=== PATIENT | female | born 1975 | race Caucasian/White ===

== ENCOUNTER 2016-12-11 10:40 | Inpatient (IN) | payer BC ==
--- NOTE | ~2016-12-11 | EGD ---
EGD REPORT [facility] [address] [address] NAME: LEON PARKER : [birth year] STATUS : ADM Amie PAT#: [id number] AGE: 41 ADM/REG DATE : 12/11/16 MR#: [id number] REPORT SERV DATE: 12/12/16 DICTATED BY: GONZALES BRIONES DATE: 12/12/16 REPORT STATUS : Draft TRANSCRIBED BY: [facility] DATE: 12/12/16 [facility] Patient Name: Leon Parker Date of : 1975 Attending MD: GONZALES BRIONES MD Procedure Date No Time: 12/12/2016 Procedure: Colonoscopy Indications: Abdominal pain in the right lower quadrant, Clinically significant diarrhea of unexplained origin, Hematochezia Referring MD: MARY MEDRANO MD Medicines: as per anesthesia Complications: No immediate complications. Procedure: Pre-Anesthesia Assessment: - ASA Grade Assessment: III - A patient with severe systemic disease. After I obtained informed consent, the scope was passed under direct vision. Throughout the procedure, the patient's blood pressure, pulse, and oxygen saturations were monitored continuously. The [facility] [id number] was introduced through the anus and advanced to the cecum, identified by appendiceal orifice and ileocecal valve. The colonoscopy was performed without difficulty. The patient tolerated the procedure. The quality of the bowel preparation was adequate to identify polyps. Findings: The perianal and digital rectal examinations were normal. Two sessile polyps were found in the transverse colon. The polyps were 7 to 8 mm in size. These polyps were removed with a jumbo cold forceps. Resection and retrieval were complete. Internal hemorrhoids were found during endoscopy and were moderate. Four biopsies were obtained in the rectum and in the ascending colon with cold forceps for histology. Impression: - Two 7 to 8 mm polyps in the transverse colon. Resected and retrieved. - Internal hemorrhoids. - Four biopsies were obtained in the rectum and in the ascending colon. Recommendation: - Await pathology results. - Repeat colonoscopy for surveillance based on pathology results. Procedure Code(s): --- Professional --- EGD REPORT [facility] [address] [place]. [address] NAME: LEON PARKER : [birth year] STATUS : ADM Amie PAT#: [id number] AGE: 41 ADM/REG DATE : 12/11/16 MR#: [id number] REPORT SERV DATE: 12/12/16 DICTATED BY: GONZALES BRIONES. DATE: 12/12/16 REPORT STATUS : Draft TRANSCRIBED BY: [employer] DATE: 12/12/16 [id number], Colonoscopy, flexible, proximal to splenic flexure; with biopsy, single or multiple Diagnosis Code(s): --- Professional --- D12.3, Benign neoplasm of transverse colon K64.8, Other hemorrhoids R10.31, Right lower quadrant pain R19.7, Diarrhea, unspecified K92.1, Melena CPT copyright 2013 [employer]. All rights reserved. The codes documented in this report are preliminary and upon cook's assistant review may be revised to meet current compliance requirements. GONZALES BRIONES MD 12/12/2016 3:22 PM This report has been signed electronically. Number of Addenda: 0 Note Initiated On: 12/12/2016 2:21 PM Scope Withdrawal Time 0 hours 16 minutes 51 seconds [address] [place] [address]
--- NOTE | ~2016-12-11 | CN ---
Consultation Report [facility] [address] [place]. [address] NAME: LEON PARKER : [birth year] STATUS : ADM Amie PAT#: [id number] AGE: 41 ADM/REG DATE : 12/11/16 MR#: [id number] REPORT SERV DATE: 12/12/16 DICTATED BY: GONZALES BRIONES DATE: 12/11/16 REPORT STATUS : Draft TRANSCRIBED BY: TUTU DATE: 12/11/16 DATE OF CONSULTATION: 12/11/2016 HISTORY OF PRESENT ILLNESS: The is a 41-year-old, white female, admitted with a first episode of rectal bleeding, history of chronic diarrhea for some years. 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 Quigley for her arthritis, has sacroiliitis, ankylosing spondylitis, has been tried on Azulfidine, which she did not tolerate and has been on Humira with some response, some history of GERD, had hysterectomy last month, and is unremarkable thus far fibroids, also had her ovaries removed as well. She is also status post cholecystectomy. FAMILY HISTORY: Negative for IBD, negative for colon cancer. SOCIAL HISTORY: Positive nicotine. Positive for ETOH. Hemoglobin 13, white count 8. PHYSICAL EXAMINATION: GENERAL: Well-developed, well-nourished white female, alert and oriented x3. HEENT: Anicteric. CHEST: Clear. HEART: Regular rate and rhythm. No murmur or gallop. ABDOMEN: Soft. Mild tenderness in right lower quadrant. Bowel sounds present. EXTREMITIES: Grossly intact. ASSESSMENT: 1. Rectal bleeding. Chronic diarrhea, cramping, history of . 2. History of gastroesophageal reflux disease. SUGGESTION: 1. Agree with check stool studies. 2. We will schedule for colonoscopy. ADEN/TUTU Gonzales Briones M.D. / [id number] CC: Jewel Baker M.D.
--- NOTE | ~2016-12-11 | HP ---
History And Physical [facility] [address] [place]. [address] NAME: LEON PARKER : [birth year] STATUS : ADM Amie PAT#: [id number] AGE: 41 ADM/REG DATE : 12/11/16 MR#: [id number] REPORT SERV DATE: 12/12/16 DICTATED BY: DANO SINGH DATE: 12/11/16 REPORT STATUS : Draft TRANSCRIBED BY: MODL DATE: 12/11/16 DATE OF ADMISSION: 12/11/2016 HISTORY OF PRESENT ILLNESS: This is a pleasant 41-year-old white female who was at work today and had a large bloody bowel movement that was quite significant and was bright red in nature. She reports that she did not have any significant abdominal pain with this bowel movement, but from time to time, has some upper left quadrant and lower right quadrant abdominal pain. The patient states that she has had chronic diarrhea "as far back as she can remember or her entire life," she states that every time she eats anything within ten to fifteen minutes she is having loose stools or diarrhea. She has no known foods that precipitate this. She says "anything." She reports that back in March or April, she cannot remember exactly when, she had a CT scan of her abdomen and pelvis that showed some sacral ileitis. She was seen by her primary care and seen by manager administration who recommended GI referral this was delayed for some months as the patient underwent plans for a wedding which she is now and wanted to further pursue her chronic diarrhea problems. She was actually seen in the office by the nurse practitioner of Dr. Kirby Prieto and had been scheduled for an outpatient endoscopy procedure, but has since been directly admitted for this bloody stool and workup and Dr. Prieto is planning to do a colonoscopy in the a.m. on 12/12/2016. The patient states that her diarrhea is of course chronic and has been going on for most of her adult life, but did get worse after a cholecystectomy that she had done in the past. She reports some nausea, but no vomiting. She reports that she does not have any issues with eating and drinking. Swallowing is fine. She denies any fevers, denies any shortness of breath, denies any chest pain, denies any difficulty in carrying out activities of daily living, but also complains of a worsening fatigue over the past several weeks and months that seems to her to be getting worse. Then she states that she has had to take several naps after work which she was not accustomed to prior to this. PAST MEDICAL HISTORY: Includes a chronic diarrhea, questionable Crohn's, abnormal bleeding, anemia, GERD, insomnia, depression, chronic headaches, and questionable ankylosing spondylitis. SURGICAL HISTORY: Includes total hysterectomy that was performed in October of 2016 and prior cholecystectomy. FAMILY HISTORY: Mother with hypertension and chronic diarrhea and some unnamed psychiatric disorders. Father with hypertension. ALLERGIES: SHE DENIES ANY FOOD OR DRUG ALLERGIES. SOCIAL HISTORY: She works as a nurse at [employer]. Primary care is Dr. Mccord; GI, Dr. Prieto; manager administration, Dr. Quigley. REVIEW OF SYSTEMS: 10 point negative except for pertinents that are mentioned in above the HPI. PHYSICAL EXAMINATION: History And Physical [address] [address] NAME: LEON PARKER : [birth year] STATUS : ADM Amie PAT#: [id number] AGE: 41 ADM/REG DATE : 12/11/16 MR#: [id number] REPORT SERV DATE: 12/12/16 DICTATED BY: DANO SINGH DATE: 12/11/16 REPORT STATUS : Draft TRANSCRIBED BY: TUTU DATE: 12/11/16 VITAL SIGNS: Temperature 98.0, pulse rate is 75, blood pressure 119/77, respiratory rate of 18, she is on room air saturating 98%. NEUROLOGIC: Alert and oriented x3. No focal deficits. Cooperative and awake in no acute distress for this exam. NECK: No appreciable JVD. Mildly enlarged palpation of the thyroid gland. LUNGS: Clear to auscultation bilaterally. Normal respiratory effort. CARDIOVASCULAR: Regular rate and rhythm, sinus. No murmurs, rubs, or gallops appreciated on auscultation. ABDOMEN: Soft, but tender in the right lower quadrant epigastric area with active bowel sounds. EXTREMITIES: No edema. Normal distal pulses. EYES: PERRLA is noted. Sclerae clear. SKIN: Otherwise skin is warm and dry. Cranial nerves II through XII intact. LAB WORK: Shows sodium 143, potassium 4.0, a BUN of 14, creatinine 0.68, glucose of 120. White blood cells of 8.0, hemoglobin 12.4, hematocrit 36.4, INR of 1.0, platelets of 251. ASSESSMENT: 1. Bloody stool/gastrointestinal bleed. 2. Chronic diarrhea. Question Crohn's. 3. Fatigue. 4. Gastroesophageal reflux disease. 5. Chronic headache. 6. Depression and insomnia. 7. Questionable ankylosing spondylitis. 8. On chronic immunosuppression therapy of Humira. PLAN: I have discussed with Dr. Kirby Prieto, initiating bowel prep, keeping n.p.o. after midnight and colonoscopy in the a.m. with potential for small bowel follow through. We will obtain stool studies to check for cultures, O and P, leukocytes, and C. difficile. Follow her lab work, particularly H and Hs if she is in need of transfusion. We will certainly give her blood. We will obtain lab work to include iron studies, magnesium, TSH, urinalysis, and hemoglobin A1c. We will give reasonable pain and nausea control p.r.n. Her home medications have been addressed. We will hold off on Humira at this time, but continue her PPI, Elavil, vitamin B12, Prilosec, Topamax, and Effexor. I appreciate Dr. Kirby Prieto help on this patient's hospital stay. The patient is agreement with this plan going forward. Thank you now. CONRAD/TUTU Dano Singh NP History And Physical [address] [address] NAME: LEON PARKER : [birth year] STATUS : ADM Amie PAT#: [id number] AGE: 41 ADM/REG DATE : 12/11/16 MR#: [id number] REPORT SERV DATE: 12/12/16 DICTATED BY: DANO SINGH DATE: 12/11/16 REPORT STATUS : Draft TRANSCRIBED BY: TUTU DATE: 12/11/16 / [id number] CC: Jewel Baker M.D.
--- NOTE | ~2016-12-11 | DS ---
Discharge Summary [facility] [address] [place]. [address] NAME: LEON PARKER : [birth year] STATUS : DIS IN PAT#: [id number] AGE: 41 ADM/REG DATE : 12/11/16 MR#: [id number] REPORT SERV DATE: 12/14/16 DICTATED BY: DANO SINGH DATE: 12/13/16 REPORT STATUS : Draft TRANSCRIBED BY: MODL DATE: 12/13/16 ADMISSION DATE: 12/11/2016 DISCHARGE DATE: 12/13/2016 DISCHARGE DIAGNOSES: Include: 1. Bloody stool, lower gastrointestinal bleed, internal hemorrhoids. 2. Chronic diarrhea. 3. History of gastroesophageal reflux disease. 4. Depression and insomnia. 5. Chronic fatigue. 6. Chronic headache. 7. Questionable ankylosing spondylitis, followed by outpatient Rheumatology. DISCHARGE MEDICATIONS: Are as follows: Amitriptyline 50 mg at bedtime, vitamin B12 1000 mcg daily, Prilosec 20 mg daily, Topamax 150 mg at bedtime, Effexor XR 150 mg daily, and Humira 40 mg subcutaneously every 14 days. HISTORY OF PRESENT ILLNESS: This is a pleasant 41-year-old white female, who presented with complaints of large bloody bowel movement, it was a direct admission. Please see my initial H and P. this patient was admitted to the Hospitalist Service for further evaluation and treatment. CONSULTANTS DURING THIS ADMISSION: Include GI, Dr. Kirby Prieto. PROCEDURES AND IMAGING DURING THIS ADMISSION: Include a colonoscopy performed on 12/12/2016 showing two polyps in the transverse colon, internal hemorrhoids, and no evidence of any colitis upon exam there. Small bowel follow-through study that showed small bowel to be intrinsically normal in appearance and a small bowel transit time of less than 3 hours. CONTINUATION OF HOSPITAL COURSE: The patient's lab work, her H and H have remained relatively stable, only change of hemoglobin 12.4, hematocrit 36.4, down to 11.5 and 33.8. She has been afebrile. She underwent the above-described testing and procedures and has recovered well from those. She has had no significant abdominal pain. She has not had any more diarrhea. Here in fact, she did have a formed stool that was sent to the lab. So far, her stool studies have all been negative, including parasite screen, leukocytes, and Shiga toxin, all were within normal limits or negative and C difficile was unable to be tested because it was a formed stool. Her urinalysis was also within normal limits and other notables within normal limits were hemoglobin A1c of 5.4 and a TSH of 2.000. Given the negative testing and overall improvement in symptoms of the patient, she was felt safe for discharge home on 12/13/2016 with instructions to keep her followups with her primary care and desk director as scheduled. I discussed the case at length with Dr. Kirby Prieto whose office is to contact the patient for followup after this hospitalization in approximately two weeks to follow up with the biopsies. I have also counseled the patient to stop smoking extensively and I have told her to keep a food journal to help distinguish if there are any offending foods that cause diarrhea. She is in agreement with this plan going forward. Questions were answered at bedside. Her primary care is Dr. Mccord. Discharge Summary [address] [place]. [address] NAME: LEON PARKER : [birth year] STATUS : DIS IN PAT#: [id number] AGE: 41 ADM/REG DATE : 12/11/16 MR#: [id number] REPORT SERV DATE: 12/14/16 DICTATED BY: DANO SINGH DATE: 12/13/16 REPORT STATUS : Draft TRANSCRIBED BY: TUTU DATE: 12/13/[address] Employment [address] Specialist [address]. Quigley. DICTATED BY: Dano Singh NP [facility] [place], [place]/TUTU Dano Singh NP / [id number] CC: MD Shikha Wells M.D.
[2016-12-11 10:29] LABS: BASOPHILS 0.6 %; BASOPHILS ABSOLUTE 0.05 10/3/uL (0.0-0.16); EOSINOPHILS 1.8 %; EOSINOPHILS ABSOLUTE 0.14 10/3/uL (0.0-0.53); HEMATOCRIT 38.1 % (36.0-48.0); HEMOGLOBIN 13.2 g/dL (12.0-16.0); IMMATURE GRANULOCYTES 0.4 %; IMMATURE GRANULOCYTES ABSOLUTE 0.03 10/3/uL (0.0-0.11); LYMPHOCYTES 38.4 %; LYMPHOCYTES ABSOLUTE 3.06 10/3/uL (0.67-4.30); MEAN CORPUS HGB CONC 34.6 g/dL (32.0-36.0); MEAN CORPUSCULAR HEMOGLOB 33.5 pg (26.0-34.0); MEAN CORPUSCULAR VOLUME 96.7 fL (80-100); MEAN PLATELET VOLUME 10.1 fL (9.2-13.0); MONOCYTES 4.8 %; MONOCYTES ABSOLUTE 0.38 10/3/uL (0.21-1.20); PLATELET COUNT 251 10/3/uL (150-400); RBC DISTRIBUTION WIDTH 11.5 % (12.0-16.0); RED CELL COUNT 3.94 10/6/uL (4.0-5.6)
[2016-12-11 10:30] LABS: MANUAL DIFF NO %
[2016-12-11 10:37] LABS: PARTIAL THROMBO TIME 25.6 SEC (22.5-37.2); PROTIME (NOT ORD) 13.2 SEC (12.0-14.5)
[2016-12-11 10:46] LABS: A/G RATIO 1.1 (0.7-1.9); ALBUMIN 3.6 G/DL (3.5-5.0); ALKALINE PHOSPHATASE 87 U/L (45-117); BUN (BLOOD UREA NITROGEN) 14 MG/DL (6-23); CALCIUM, SERUM 8.7 MG/DL (8.5-10.4); CHLORIDE, SERUM 113 MMOL/L (96-112); CO2 (CARBON DIOXIDE) 22 MMOL/L (24-34); CREATININE 0.68 MG/DL (0.55-1.02); GFR AFRICAN AMERICAN 127 ML/MIN (>=60); GFR NON AFRICAN AMERICAN 109 ML/MIN (>=60); GLOBULIN 3.4 G/DL (2.5-4.1); GLUCOSE, SERUM 120 MG/DL (60-99); SGOT(AST) 13 U/L (5-40); SGPT(ALT) 27 U/L (5-65); SODIUM, SERUM 143 MMOL/L (135-148); TOTAL BILIRUBIN 0.2 MG/DL (0-1.2)
[2016-12-11] MEDS ORDERED: EFFEXOR XR150 MG PO (12:04)
[2016-12-11] MEDS ORDERED: HUMIRA PEN SC (12:05)
[2016-12-11] MEDS ORDERED: PRILO PO (12:05)
[2016-12-11] MEDS ORDERED: TOPAMAX50 MG PO (12:05)
[2016-12-11] MEDS ORDERED: CYANO1000T PO (12:06)
[2016-12-11] MEDS ORDERED: AMIT25 PO (12:06)
[2016-12-11 17:09] LABS: HEMATOCRIT 36.4 % (36.0-48.0); HEMOGLOBIN 12.4 g/dL (12.0-16.0)
[2016-12-11 20:06] LABS: WBC (NOT ORDERED) (RFLEX) 0 (0-5)
[2016-12-11 20:29] LABS: ASCORBIC ACID (UR NOT ORDER) NEG (NEG); BILIRUBIN, URINE NEGATIVE (NEG); KETONE, URINE NEGATIVE (NEG); LEUKOCYTE ESTERASE(NOT OR NEG (NEG)
[2016-12-11 20:42] LABS: FERRITIN 16 NG/ML (8-252); IRON BINDING CAPACITY 347 MCG/DL (225-410); IRON, SERUM 100 MCG/DL (35-150)
[2016-12-12] LABS: HEMATOCRIT 34.4 % (36.0-48.0); HEMOGLOBIN 12.1 g/dL (12.0-16.0)
[2016-12-12 05:20] LABS: BASOPHILS 0.6 %; BASOPHILS ABSOLUTE 0.04 10/3/uL (0.0-0.16); EOSINOPHILS 2.5 %; EOSINOPHILS ABSOLUTE 0.17 10/3/uL (0.0-0.53); HEMATOCRIT 33.8 % (36.0-48.0); HEMOGLOBIN 11.5 g/dL (12.0-16.0); IMMATURE GRANULOCYTES 0.1 %; IMMATURE GRANULOCYTES ABSOLUTE 0.01 10/3/uL (0.0-0.11); LYMPHOCYTES 59.7 %; LYMPHOCYTES ABSOLUTE 4.03 10/3/uL (0.67-4.30); MEAN CORPUSCULAR HEMOGLOB 32.8 pg (26.0-34.0); MEAN CORPUSCULAR VOLUME 96.3 fL (80-100); MEAN PLATELET VOLUME 10.1 fL (9.2-13.0); MONOCYTES 5.3 %; MONOCYTES ABSOLUTE 0.36 10/3/uL (0.21-1.20); NEUTROPHILS 31.8 %; NEUTROPHILS ABSOLUTE 2.14 10/3/uL (2.02-8.40); PLATELET COUNT 216 10/3/uL (150-400); RBC DISTRIBUTION WIDTH 11.8 % (12.0-16.0); RED CELL COUNT 3.51 10/6/uL (4.0-5.6); WHITE BLOOD CELLS 6.8 10/3/uL (4.5-10.5)
[2016-12-12 05:23] LABS: CHLORIDE, SERUM 116 MMOL/L (96-112); CO2 (CARBON DIOXIDE) 24 MMOL/L (24-34); CREATININE 0.66 MG/DL (0.55-1.02); GFR AFRICAN AMERICAN 128 ML/MIN (>=60); GFR NON AFRICAN AMERICAN 110 ML/MIN (>=60); MANUAL DIFF NO %; POTASSIUM, SERUM 3.7 MMOL/L (3.5-5.3); SODIUM, SERUM 145 MMOL/L (135-148)
[2016-12-12 05:24] LABS: BUN (BLOOD UREA NITROGEN) 8 MG/DL (6-23); C-REACTIVE PROTEIN < 2.9 MG/L (<8.0); CALCIUM, SERUM 7.6 MG/DL (8.5-10.4); GLUCOSE, SERUM 94 MG/DL (60-99)
[2016-12-12 06:59] LABS: SED RATE 10 MM/HR (0-20)
[2017-02-28] MEDS ORDERED: NEXIUM40 PO (11:49)
[2017-02-28] MEDS ORDERED: ALEVE220 MG PO (11:51)
== END 2016-12-13 14:35 | disposition home or self-care (01) | DRG 379 ==
LOC: ER 10:40 → CDU1 12:44
PROVIDERS: Emergency Medicine; Hospitalist; Internal Medicine Gastroenterology
PROC: 0DBK8ZX Excision of Ascending Colon, Via Natural or Artificial Opening Endoscopic, Diagnostic (ICD-10-PCS; 2016-12-12)
PROC: 0DBP8ZX Excision of Rectum, Via Natural or Artificial Opening Endoscopic, Diagnostic (ICD-10-PCS; 2016-12-12)
PROC: 0DBL8ZX Excision of Transverse Colon, Via Natural or Artificial Opening Endoscopic, Diagnostic (ICD-10-PCS; principal; 2016-12-12 14:25)
DX: K92.2 Gastrointestinal hemorrhage, unspecified (principal); F32.9 Major depressive disorder, single episode, unspecified; K64.8 Other hemorrhoids; D12.3 Benign neoplasm of transverse colon; K21.9 Gastro-esophageal reflux disease without esophagitis; R51 Headache; F17.210 Nicotine dependence, cigarettes, uncomplicated; G47.00 Insomnia, unspecified; M45.9 Ankylosing spondylitis of unspecified sites in spine; Z79.899 Other long term (current) drug therapy; Z90.49 Acquired absence of other specified parts of digestive tract; Z90.710 Acquired absence of both cervix and uterus; Z82.49 Family history of ischemic heart disease and other diseases of the circulatory system; Z81.8 Family history of other mental and behavioral disorders
CPT/HCPCS: 36415; 74250; 80048; 80053; 81001; 82728; 83036; 83540; 83550; 83735; 84443; 85014; 85018; 85025; 85610; 85652; 85730; 86140; 86850; 86900; 86901; 87045; 87046; 87046-59; 87328; 87329; 87493; 87493-59; 87899; 87899-59; 88305; 89055; 93005; 96374; 99285; A9270-GY; J2405